=== PATIENT | female | born 1990 | race African-American/Black ===

== ENCOUNTER 2021-07-09 21:56 | Inpatient (IN) | payer OTHER ==
[2021-07-10 00:06] LABS: HEMATOCRIT 23.8 % (32.4-45.2); HEMOGLOBIN 7.5 GM/dL (10.7-15.3); MCHC 31.4 g/dl (32.0-36.0); MEAN CELL VOLUME 57.6 fl (80-96); MEAN PLT VOLUME 7.6 fl (7.5-11.1); PLATELET COUNT 563 10^3/uL (134-434); RBC 4.12 M/mm3 (3.60-5.2); RDW 19.2 % (11.6-15.6); WHITE BLOOD COUNT 24.4 K/mm3 (4.0-10.0)
[2021-07-10 00:14] LABS: MCH 18.1 pg (25.7-33.7)
[2021-07-10 00:30] LABS: CALCIUM 9.3 mg/dL (8.5-10.1)
[2021-07-10 00:31] LABS: ALBUMIN 2.9 g/dl (3.4-5.0)
[2021-07-10 00:35] LABS: CREATININE 0.8 mg/dL (0.55-1.3)
[2021-07-10 00:36] LABS: BILIRUBIN,TOTAL 0.4 mg/dL (0.2-1); TOT PROT 7.1 g/dl (6.4-8.2)
[2021-07-10] MEDS ORDERED: METHYLERGONOVINE MALEATE 0.2 MG TABLET (FP) PO ONE (02:09)
[2021-07-10 02:39] LABS: ANISOCYTOSIS 2+; MACROCYTOSIS 0; OVALOCYTE 1+; PLATELET ESTIMATE INCREASED; TARGET CELLS 1+; TEAR DROP CELLS 1+; TOXIC GRANULATION 2+
[2021-07-10 02:44] LABS: BLOOD UREA NITROGEN 17.6 mg/dL (7-18)
[2021-07-10 02:47] LABS: CREATININE 0.7 mg/dL (0.55-1.3)
[2021-07-10] MEDS: ELECTROLYTE-148 SOLN 1,000 ML IV SCH ×2 (10:59→22:18)
[2021-07-10] MEDS ORDERED: AMPICILLIN - 2 GM in SODIUM CHLORIDE 100 ML IVPB ONE ×2 (13:18→13:36)
[2021-07-10] MEDS ORDERED: METHYLERGONOVINE MALEATE 0.2 MG/1 ML AMP IM PRN (13:23)
[2021-07-10] MEDS: SODIUM CHLORIDE 2,994 ML IV ONE ×2 (14:30→16:16)
[2021-07-10] MEDS ORDERED: AMPICILLIN NA/SULBACTAM NA 3 GM in DEXTROSE 5%-WATER 100 ML IVPB SCH (15:00)
[2021-07-10 16:09] LABS: BASO % 0.1 % (0-2.0); EOS % 0.1 % (0-4.5); HEMATOCRIT 21.5 % (32.4-45.2); LYMPH % 6.3 % (8-40); MCH 20.7 pg (25.7-33.7); MCHC 32.4 g/dl (32.0-36.0); MEAN CELL VOLUME 63.8 fl (80-96); MEAN PLT VOLUME 7.6 fl (7.5-11.1); MONO % 6.5 % (3.8-10.2); PLATELET COUNT 509 10^3/uL (134-434); RBC 3.37 M/mm3 (3.60-5.2); RDW 25.5 % (11.6-15.6)
[2021-07-10] MEDS: PIPERACILLIN/TAZOB 3.375 GM 3.375 GM in DEXTROSE 5%-WATER - 50 ML IVPB SCH ×2 (16:17→22:50)
[2021-07-10 16:29] LABS: CALCIUM 8.5 mg/dL (8.5-10.1)
[2021-07-10 16:30] LABS: ALBUMIN 2.7 g/dl (3.4-5.0); BLOOD UREA NITROGEN 22.8 mg/dL (7-18)
[2021-07-10 16:31] LABS: WHITE BLOOD COUNT 30.9 K/mm3 (4.0-10.0)
[2021-07-10 16:33] LABS: CREATININE 0.8 mg/dL (0.55-1.3)
[2021-07-10 16:35] LABS: BILIRUBIN,TOTAL 0.4 mg/dL (0.2-1); TOT PROT 6.3 g/dl (6.4-8.2)
[2021-07-10] MEDS: INSULIN SLIDING SCALE (NOVOLOG) 1 VIAL SQ SCH ×2 (16:36→22:33)
[2021-07-10 16:48] LABS: LACTIC ACID 2.3 mmol/L (0.4-2.0)
[2021-07-10 17:10] LABS: ANISOCYTOSIS 3+; MACROCYTOSIS 0; PLATELET ESTIMATE INCREASED; TARGET CELLS 1+
[2021-07-10] MEDS ORDERED: AMPICILLIN - 1 GM in SODIUM CHLORIDE 100 ML IVPB SCH (17:18)
[2021-07-10] MEDS ORDERED: SODIUM CHLORIDE 500 ML IV STA (22:07)
[2021-07-10 23:04] LABS: LACTIC ACID 2.1 mmol/L (0.4-2.0)
[2021-07-11] MEDS: PIPERACILLIN/TAZOB 3.375 GM 3.375 GM in DEXTROSE 5%-WATER - 50 ML IVPB SCH (06:18)
[2021-07-11] MEDS: INSULIN SLIDING SCALE (NOVOLOG) 1 VIAL SQ SCH ×4 (06:25→21:30)
[2021-07-11] MEDS ORDERED: PROPOFOL 20 ML ONE ×3 (08:03)
[2021-07-11] MEDS ORDERED: MIDAZOLAM HCL 2 MG/2 ML SINGLE DOSE VIAL ONE (08:03)
[2021-07-11] MEDS ORDERED: SUCCINYLCHOLINE CHLORIDE 200 MG/10 ML SYRINGE ONE (08:03)
[2021-07-11 08:17] LABS: BASO % 0.3 % (0-2.0); EOS % 0.2 % (0-4.5); HEMATOCRIT 21.5 % (32.4-45.2); HEMOGLOBIN 7.1 GM/dL (10.7-15.3); LYMPH % 11.8 % (8-40); MCH 22.9 pg (25.7-33.7); MCHC 33.2 g/dl (32.0-36.0); MEAN CELL VOLUME 69.1 fl (80-96); MONO % 7.7 % (3.8-10.2); PLATELET COUNT 473 10^3/uL (134-434); RBC 3.11 M/mm3 (3.60-5.2); WHITE BLOOD COUNT 19.4 K/mm3 (4.0-10.0)
[2021-07-11 08:33] LABS: CALCIUM 8.3 mg/dL (8.5-10.1)
[2021-07-11 08:34] LABS: ALBUMIN 2.4 g/dl (3.4-5.0); BLOOD UREA NITROGEN 15.2 mg/dL (7-18)
[2021-07-11 08:37] LABS: CREATININE 0.7 mg/dL (0.55-1.3)
[2021-07-11 08:38] LABS: BILIRUBIN,TOTAL 0.7 mg/dL (0.2-1); TOT PROT 5.6 g/dl (6.4-8.2)
[2021-07-11] MEDS ORDERED: ONDANSETRON 4 MG/2 ML VIAL ONE (08:49)
[2021-07-11] MEDS ORDERED: KETOROLAC TROMETHAMINE 30 MG/1 ML VIAL ONE (08:52)
[2021-07-11] MEDS ORDERED: OXYTOCIN 10 UNITS/ML VIAL ONE (09:04)
[2021-07-11] MEDS ORDERED: ONDANSETRON 4 MG/2 ML VIAL IVPUSH PRN (09:18)
[2021-07-11] MEDS ORDERED: ACETAMINOPHEN 325 MG TABLET (FP) PO PRN (09:18)
[2021-07-11] MEDS ORDERED: LACTATED RINGERS SOLUTION 1,000 ML IV SCH (09:30)
[2021-07-11] MEDS: PIPERACILLIN/TAZOB 4.5 GM 4.5 GM in DEXTROSE 5%-WATER 100 ML IVPB SCH ×2 (13:41→17:58)
[2021-07-11 16:53] LABS: HEMATOCRIT 21.6 % (32.4-45.2); HEMOGLOBIN 7.2 GM/dL (10.7-15.3); MCH 23.8 pg (25.7-33.7); MCHC 33.3 g/dl (32.0-36.0); MEAN CELL VOLUME 71.6 fl (80-96); MEAN PLT VOLUME 7.4 fl (7.5-11.1); PLATELET COUNT 411 10^3/uL (134-434); RBC 3.01 M/mm3 (3.60-5.2); WHITE BLOOD COUNT 16.1 K/mm3 (4.0-10.0)
[2021-07-11 19:22] LABS: ANISOCYTOSIS 3+; MACROCYTOSIS 0; PLATELET ESTIMATE NORMAL
[2021-07-11 21:36] LABS: HEMATOCRIT 20.7 % (32.4-45.2); MCH 23.6 pg (25.7-33.7); MEAN CELL VOLUME 71.4 fl (80-96); MEAN PLT VOLUME 7.4 fl (7.5-11.1); PLATELET COUNT 394 10^3/uL (134-434); RBC 2.89 M/mm3 (3.60-5.2); RDW 29.7 % (11.6-15.6); WHITE BLOOD COUNT 14.7 K/mm3 (4.0-10.0)
[2021-07-11 21:41] LABS: HEMOGLOBIN 6.8 GM/dL (10.7-15.3)
[2021-07-11 22:34] LABS: ANISOCYTOSIS 3+; MACROCYTOSIS 0; PLATELET ESTIMATE NORMAL; TARGET CELLS 1+
[2021-07-11 23:19] LABS: INR 1.05 (0.83-1.09); PROTHROMBIN TIME (PATIENT) 11.8 SEC (9.7-13.0)
[2021-07-11 23:22] LABS: ACTIVATED PTT 24.4 SECONDS (25.2-36.5)
[2021-07-12] MEDS: PIPERACILLIN/TAZOB 4.5 GM 4.5 GM in DEXTROSE 5%-WATER 100 ML IVPB SCH ×3 (02:16→17:30)
[2021-07-12] MEDS: INSULIN SLIDING SCALE (NOVOLOG) 1 VIAL SQ SCH ×4 (06:02→21:54)
[2021-07-12 09:08] LABS: HEMATOCRIT 25.2 % (32.4-45.2); HEMOGLOBIN 8.5 GM/dL (10.7-15.3); MCH 25.2 pg (25.7-33.7); MCHC 33.7 g/dl (32.0-36.0); MEAN CELL VOLUME 74.8 fl (80-96); MEAN PLT VOLUME 7.5 fl (7.5-11.1); PLATELET COUNT 379 10^3/uL (134-434); RBC 3.37 M/mm3 (3.60-5.2); RDW 29.1 % (11.6-15.6); WHITE BLOOD COUNT 11.4 K/mm3 (4.0-10.0)
[2021-07-12 09:23] LABS: BLOOD UREA NITROGEN 8.8 mg/dL (7-18); CALCIUM 8.4 mg/dL (8.5-10.1)
[2021-07-12 09:24] LABS: ALBUMIN 2.4 g/dl (3.4-5.0); MAGNESIUM 2.3 mg/dL (1.8-2.4)
[2021-07-12 09:27] LABS: CREATININE 0.7 mg/dL (0.55-1.3)
[2021-07-12 09:28] LABS: BILIRUBIN,TOTAL 0.6 mg/dL (0.2-1); TOT PROT 5.3 g/dl (6.4-8.2)
[2021-07-12 11:10] LABS: ANISOCYTOSIS 1+; MACROCYTOSIS 0; OVALOCYTE 1+; PLATELET ESTIMATE NORMAL
[2021-07-12 16:03] LABS: HEMATOCRIT 25.4 % (32.4-45.2); HEMOGLOBIN 8.6 GM/dL (10.7-15.3); MCHC 33.8 g/dl (32.0-36.0); MEAN CELL VOLUME 74.1 fl (80-96); MEAN PLT VOLUME 7.1 fl (7.5-11.1); PLATELET COUNT 415 10^3/uL (134-434); RBC 3.43 M/mm3 (3.60-5.2); WHITE BLOOD COUNT 13.2 K/mm3 (4.0-10.0)
[2021-07-12] MEDS: ACETAMINOPHEN 325 MG TABLET (FP) PO PRN (17:55)
[2021-07-12 18:31] LABS: ANISOCYTOSIS 2+; MACROCYTOSIS 0; PLATELET ESTIMATE NORMAL; TARGET CELLS 1+; TEAR DROP CELLS 1+
[2021-07-13] MEDS: PIPERACILLIN/TAZOB 4.5 GM 4.5 GM in DEXTROSE 5%-WATER 100 ML IVPB SCH ×2 (02:06→09:57)
[2021-07-13] MEDS: INSULIN SLIDING SCALE (NOVOLOG) 1 VIAL SQ SCH ×3 (06:05→17:05)
[2021-07-13 08:43] LABS: HEMATOCRIT 25.9 % (32.4-45.2); HEMOGLOBIN 8.6 GM/dL (10.7-15.3); MCH 24.9 pg (25.7-33.7); MCHC 33.3 g/dl (32.0-36.0); MEAN CELL VOLUME 74.6 fl (80-96); MEAN PLT VOLUME 7.2 fl (7.5-11.1); PLATELET COUNT 480 10^3/uL (134-434); RBC 3.48 M/mm3 (3.60-5.2); RDW 29.1 % (11.6-15.6); WHITE BLOOD COUNT 13.3 K/mm3 (4.0-10.0)
[2021-07-13] MEDS: ACETAMINOPHEN 325 MG TABLET (FP) PO PRN (10:04)
[2021-07-13 18:32] VITALS: BP 110/72; PULSE 72; TEMP 98
== END 2021-07-13 17:30 | disposition home or self-care (01) | DRG 544 ==
LOC: JER 21:56 → JERBED 07-10 02:16 → J3W 07-10 11:47
PROVIDERS: ADMIT Obstetrics & Gynecology; ATTEND Obstetrics & Gynecology
PROC: 30233N1 Transfusion of Nonautologous Red Blood Cells into Peripheral Vein, Percutaneous Approach (ICD-10-PCS; 2021-07-11)
PROC: 0UDB7ZZ Extraction of Endometrium, Via Natural or Artificial Opening (ICD-10-PCS; principal; 2021-07-11 08:00)
DX: O03.0 Genital tract and pelvic infection following incomplete spontaneous abortion (principal); N93.9 Abnormal uterine and vaginal bleeding, unspecified; E11.9 Type 2 diabetes mellitus without complications; R00.0 Tachycardia, unspecified; E87.2 Acidosis; D62 Acute posthemorrhagic anemia; D72.829 Elevated white blood cell count, unspecified
CPT/HCPCS: 36415; 36430; 76817-TC; 80048; 80053; 82962; 83036; 83540; 83550; 83605; 83735; 84484; 84702; 85025; 85027; 85384; 85610; 85730; 86780; 86850; 86900; 86901; 86922; 87040; 88305-TC; 93005; 93010; 94760; 99291; C9803; P9058; U0003; U0005

== ENCOUNTER 2021-10-10 04:43 | Day surgery (SDC) | payer OTHER ==
[2021-10-06 09:55] VITALS: BMI 32.8
[2021-10-10] MEDS ORDERED: ceFAZolin SODIUM 1 GM VIAL IVPB ONE (11:40)
[2021-10-10] MEDS ORDERED: DEXAMETHASONE SOD PHOSPHATE 4 MG/1 ML VIAL ONE (11:44)
[2021-10-10] MEDS ORDERED: KETOROLAC TROMETHAMINE 30 MG/1 ML VIAL ONE (11:44)
[2021-10-10] MEDS ORDERED: ceFAZolin SODIUM 1 GM VIAL ONE (11:44)
[2021-10-10] MEDS ORDERED: MIDAZOLAM HCL 2 MG/2 ML SINGLE DOSE VIAL ONE (11:44)
[2021-10-10] MEDS ORDERED: LIDOCAINE HCL/PF 2% SDV 5ML VIAL ONE (11:44)
[2021-10-10] MEDS ORDERED: PROPOFOL 20 ML ONE (11:44)
[2021-10-10] MEDS ORDERED: ONDANSETRON 4 MG/2 ML VIAL IVPUSH PRN (12:42)
[2021-10-10] MEDS ORDERED: oxyCODONE HCL 5 MG TABLET PO PRN (12:42)
[2021-10-10] MEDS ORDERED: LACTATED RINGERS SOLUTION 1,000 ML IV SCH (12:45)
[2021-10-10 15:33] VITALS: BP 131/91; PULSE 64; TEMP 97.3
== END 2021-10-10 15:38 | disposition home or self-care (01) ==
LOC: JASU-SURG 04:43
PROVIDERS: ATTEND Obstetrics & Gynecology
PROC: 0UB98ZZ Excision of Uterus, Via Natural or Artificial Opening Endoscopic (ICD-10-PCS; principal; 2021-10-10 10:30)
PROC: 0UDB8ZX Extraction of Endometrium, Via Natural or Artificial Opening Endoscopic, Diagnostic (ICD-10-PCS; 2021-10-10 10:30)
DX: N84.0 Polyp of corpus uteri (principal); D25.0 Submucous leiomyoma of uterus
CPT/HCPCS: 81025; 88305-TC; 94760

== ENCOUNTER 2022-11-08 10:17 | Emergency (ER) | payer OTHER ==
[2022-11-08 10:29] VITALS: BP 146/94; PULSE 85; RESP 18; TEMP 98.3; BMI 34.7
[2022-11-08] MEDS ORDERED: KETOROLAC TROMETHAMINE 30 MG/1 ML VIAL IM ONE (11:03)
[2022-11-08] MEDS ORDERED: KETOROLAC TROMETHAMINE 30 MG/1 ML VIAL ONE (11:27)
== END 2022-11-08 12:51 | disposition home or self-care (01) ==
LOC: JERFT 10:17 → JER 10:17 → JERFT 12:51
PROC: 3E0233Z Introduction of Anti-inflammatory into Muscle, Percutaneous Approach (ICD-10-PCS; principal; 2022-11-08)
DX: M25.562 Pain in left knee (principal); S93.492A Sprain of other ligament of left ankle, initial encounter; V86.95XA Unspecified occupant of 3- or 4- wheeled all-terrain vehicle (ATV) injured in nontraffic accident, initial encounter
CPT/HCPCS: 73562-TC-LT-FY; 73610-TC-LT-FY; 99284-25

== ENCOUNTER 2023-01-18 18:05 | Emergency (ER) | payer OTHER ==
[2023-01-18 18:26] VITALS: BP 134/92; PULSE 79; RESP 19; TEMP 97.9; BMI 41.9
[2023-01-18] MEDS ORDERED: ACETAMINOPHEN 325 MG TABLET (FP) PO ONE (18:39)
[2023-01-18] MEDS ORDERED: ACETAMINOPHEN 325 MG TABLET (FP) ONE (18:46)
== END 2023-01-18 19:29 | disposition home or self-care (01) ==
LOC: JERFT 18:05
DX: S93.402A Sprain of unspecified ligament of left ankle, initial encounter (principal); M25.572 Pain in left ankle and joints of left foot; M25.472 Effusion, left ankle; X58.XXXA Exposure to other specified factors, initial encounter; Y93.9 Activity, unspecified; Y92.9 Unspecified place or not applicable
CPT/HCPCS: 73610-TC-LT-FY; 99281-25

== ENCOUNTER 2023-04-15 17:48 | Emergency (ER) | payer OTHER ==
[2023-04-15 18:08] VITALS: BP 132/79; PULSE 92; RESP 18; TEMP 97.4; BMI 37.1
[2023-04-15] MEDS ORDERED: DIPHTH,PERTUSS(ACELL),TET 0.5 ML DISP.SYRIN IM ONE ×2 (18:27→18:37)
== END 2023-04-15 19:17 | disposition home or self-care (01) ==
LOC: JER 17:48 → JERFT 17:48
PROC: 0HQFXZZ Repair Right Hand Skin, External Approach (ICD-10-PCS; principal; 2023-04-15)
PROC: 3E0234Z Introduction of Serum, Toxoid and Vaccine into Muscle, Percutaneous Approach (ICD-10-PCS; 2023-04-15)
DX: S61.011A Laceration without foreign body of right thumb without damage to nail, initial encounter (principal); W26.8XXA Contact with other sharp object(s), not elsewhere classified, initial encounter; Y99.0 Civilian activity done for income or pay
CPT/HCPCS: 90715; 99283-25